=== PATIENT | female | born 2000 | race Two or more races ===

== ENCOUNTER 2024-04-09 17:15 | Emergency (ER) | payer MEDICAID ==
[2024-04-09 17:27] VITALS: TEMP 98.4
[2024-04-09] MEDS: HYDROCODONE/ACETAMINOPHEN 5-325 MG TABLET PO ONE (17:49)
[2024-04-09] MEDS: LORazepam 1 MG TABLET PO ONE (18:09)
[2024-04-09] MEDS ORDERED: TRAM50TA5 PO (18:46)
[2024-04-09 18:50] VITALS: BP 130/80; PULSE 85; RESP 20; O2SAT 99
[2024-04-09] MEDS: BACITRACIN 28 GM OINTMENT TP ONE (19:00)
== END 2024-04-09 19:44 | disposition home or self-care (01) ==
LOC: EMS 17:15
DX: T20.10XA Burn of first degree of head, face, and neck, unspecified site, initial encounter (principal); T31.0 Burns involving less than 10% of body surface; X12.XXXA Contact with other hot fluids, initial encounter
CPT/HCPCS: 16000; 99283